=== PATIENT | male | born 1965 | race Two or more races ===

== ENCOUNTER → 2019-01-22 | Outpatient (CLI) | payer OTHER ==
--- NOTE | 2019-01-22 17:46 | CONS ---
Assessment/Plan Assessment/Plan Hospital Course (Demo Recall) This is a 53-year-old male with a subchondral fracture of the right lateral femoral condyle. Patient does not recall an injury. He has been limiting weightbearing with a cane however he has not been completely nonweightbearing. At this time I would like to make him strictly nonweightbearing for approximately 6 weeks at that time he will be reevaluated to determine if continued conservative management should be done or he should undergo sub- chondroplasty. Radiographs do not show any collapse of the subchondral bone at this time. This will need to be closely monitored. Plan: Strictly nonweightbearing with crutches or walker if necessary Full active range of motion of the knee Follow-up 3 weeks for clinical examination as well as repeat x-rays Consultation Date/Type/Reason Admit Date/Time Date of Consultation: Jan 22, 2019 Reason for Consultation Right knee pain Date/Time of Note DATE: 01/22/19 TIME: 17:36 Hx of Present Illness Is a 53-year-old male with a chief complaint of right knee pain. The pain began approximately 1.5 months ago. The patients pain is in the lateral aspect of the right knee. Pain is not radiating to the lower leg. The pain is rated as a 7/10. Denies any injury. States he woke up with it. He has had significant difficulty ambulating secondary to pain. He has been using a cane. Patient denies complaints of numbness or tingling. The pain is exacerbated by weight bearing. Pain is not relieved by NSAID's. Patient has been taking meloxicam on a p.r.n. basis as well as using ice. Duration: 1.5 months Injury: No Walking tolerance: Very limited Limp: Yes Support: Cane Swelling: Yes Crepitation: Yes Instability: No Stairs: Not use Physical Therapy: No Injections: No NSAIDs: Meloxicam Prior surgery: No Back pain: No Hip pain: Yes Risk of AVN : Yes Patient denies fever, chills, shortness of breath, chest pain, nausea/vomiting, constipation, diarrhea, numbness, and tingling. Past Medical History Renal cell carcinoma -in remission Past Surgical History Surgical excision renal cell carcinoma, nephrectomy/adrenalectomy Family History Significant Family History: no pertinent family hx Social History Alcohol Use: heavy (2 shots per day) Smoking Status: Former smoker Drug Use: none Exam/Review of Systems Exam Vitals Weight: 225 pounds Height: 6 foot Temperature: 98.0 Heart Rate: 77 Blood Pressure: 129/76 Respiratory Rate: 12 Exam General: Alert, oriented x3. No Acute Distress. Heart: Regular rate and rhythm. Lungs: No respiratory distress. No accessory muscle use. Musculoskeletal: Right Knee This is a well developed male who is alert, oriented times three and in no apparent distress. Skin is intact over the right knee as well as the lower extremity with no abrasions, lacerations, or ulcerations. Observation of the patient's gait reveals an antalgic gait with No thrust. Frontal plane alignment is slight varus. There is pain on palpation of the lateral femoral condyle and minimal tenderness to palpation to the joint line. The patient demonstrates grinding anteriorly with ROM. Range of motion: 5 extension to approximately 130 degrees of flexion. Collateral ligament testing reveals no instability with varus or valgus stress at 0 and 30 degrees of flexion. Negative Byron's and negative posterior drawer. Neurovascularly intact with 5/5 EHL/tibialis anterior/gastroc. Sensation intact to light touch in a sural, saphenous, deep peroneal, superficial peroneal, medial and lateral plantar nerve distribution. Palpable, symmetric dorsalis pedis and posterior tibial pulses in both lower extremities. Hip examination normal. Imaging Imaging MRI of the right knee from outside facility personally reviewed. There is a subchondral fracture along the posterior lateral femoral condyle with marked marrow edema. There is no cortical disruption or bony destructive changes. There is a flap to the posterior horn lateral meniscus. There is chondromalacia in the trochlea and the posterior lateral tibia. There is a joint effusion with synovitis X-rays were obtained in clinic today and personally reviewed these included a weightbearing AP, PA, lateral, merchant view. Demonstrate a subchondral fracture lateral femoral condyle. There is no obvious collapse but there are some subchondral changes. SOFIE BASHIR MD Jan 22, 2019 17:46
--- NOTE | 2019-01-23 18:31 | RADRPT ---
PROCEDURE: Right knee radiographs. CLINICAL INDICATION: Trauma. Right knee pain. TECHNIQUE: Four views. Frontal, lateral, oblique, and patellar view. COMPARISON: No prior studies are available for comparison. FINDINGS: There is no fracture or dislocation. The soft tissues are normal. Articular surfaces are intact. There is no lytic or blastic lesion. There is no radiopaque foreign body. IMPRESSION: 1. Normal images of the right knee. RPTAT: QQ .Jeremy Coleman MD, MD Date Time Electronically viewed and signed by .Jeremy Coleman MD, on 01/23/2019 18:31 .R/
== END | disposition home or self-care (01) ==
LOC: HKI 15:52
PROVIDERS: ATTEND Orthopaedic Surgery Adult Reconstructive Orthopaedic Surgery
DX: S72.421D Displaced fracture of lateral condyle of right femur, subsequent encounter for closed fracture with routine healing (principal); X58.XXXD Exposure to other specified factors, subsequent encounter; Z85.53 Personal history of malignant neoplasm of renal pelvis; Z87.891 Personal history of nicotine dependence
CPT/HCPCS: 73564; Z7500; G0463

== ENCOUNTER → 2019-02-14 | Outpatient (CLI) | payer OTHER ==
--- NOTE | 2019-02-14 14:35 | RADRPT ---
PROCEDURE: XR Knees. CLINICAL INDICATION: Bilateral knee pain. TECHNIQUE: Total of eight views. Weightbearing frontal, oblique, and lateral views of the both kne es. Patellar views of both knees. COMPARISON: Right knee radiographs dated 01/22/2019. FINDINGS: There is no fracture or dislocation. The soft tissues are normal. Articular surfaces are intact. There are small osteophytes arising from all 3 joint compartment negra ns bilaterally. There is no lytic or blastic lesion. There is no radiopaque foreign body. IMPRESSION: 1. Mild degenerative changes. 2. Otherwise unremarkable images of both knees. RPTAT: QQ .Jeremy Coleman MD, MD Date Time Electronically viewed and signed by .Jeremy Coleman MD, MD on 02/14/2019 12:36 .R/
--- NOTE | 2019-02-14 15:56 | CONS ---
Consult Date/Type/Reason Admit Date/Time Initial Consult Date Date/Time of Note DATE: 02/14/19 TIME: 15:51 Subjective This is a 53-year-old male following up for subchondral fracture of the right lateral femoral condyle. He was made strict nonweightbearing at last appointment 3 weeks ago. However he had significant difficulty using crutches and a walker and continue to use his cane. He stated he walked as little as possible and put as little weight as possible on the right knee since last appointment. Patient states his pain is significantly better, more than 50% better. Objective Vitals Weight: 220 pound Height: 6 foot Temperature: 90.1 Heart Rate: 126/85 Blood Pressure: 79 Respiratory Rate: 12 Exam Exam/Review of Systems Exam Vitals Weight: 225 pounds Height: 6 foot Temperature: 98.0 Heart Rate: 77 Blood Pressure: 129/76 Respiratory Rate: 12 Exam General: Alert, oriented x3. No Acute Distress. Heart: Regular rate and rhythm. Lungs: No respiratory distress. No accessory muscle use. Musculoskeletal: Right Knee This is a well developed male who is alert, oriented times three and in no apparent distress. Skin is intact over the right knee as well as the lower extremity with no abrasions, lacerations, or ulcerations. Observation of the patient's gait reveals an antalgic gait with No thrust. Frontal plane alignment is slight varus. There is mild pain on palpation of the lateral femoral condyle and minimal tenderness to palpation to the joint line. The patient demonstrates grinding anteriorly with ROM. Range of motion: 5 extension to approximately 130 degrees of flexion. Collateral ligament testing reveals no instability with varus or valgus stress at 0 and 30 degrees of flexion. Negative Byron's and negative posterior drawer. Neurovascularly intact with 5/5 EHL/tibialis anterior/gastroc. Sensation intact to light touch in a sural, saphenous, deep peroneal, superficial peroneal, medial and lateral plantar nerve distribution. Palpable, symmetric dorsalis pedis and posterior tibial pulses in both lower extremities. Hip examination normal. Results/Medications Imaging X-rays were obtained in clinic today and personally reviewed these included a weightbearing AP, PA, lateral, merchant view. Demonstrate a subchondral fracture lateral femoral condyle. There is no obvious collapse but there are some subchondral changes. Assessment/Plan Hospital Course (Demo Recall) 53-year-old male with subchondral fracture of his right lateral femoral condyle. He has had significant improvement over the last 3 weeks even though he has not remain strictly nonweightbearing. He has decreased pain when walking as well as decrease tenderness to palpation on examination. Radiographs do not show any advancement of fracture or collapse. I like the patient to remain nonweightbearing for another 3 weeks. At that time would like him to follow-up with new x-rays of the knee. If his pain and exam continues to improve at next visit and radiographs do not show any collapse I will begin to allow him to weight-bear as tolerated. SOFIE BASHIR MD Feb 14, 2019 15:56
== END | disposition home or self-care (01) ==
LOC: HKI 11:54
PROVIDERS: ATTEND Orthopaedic Surgery Adult Reconstructive Orthopaedic Surgery
DX: S72.421D Displaced fracture of lateral condyle of right femur, subsequent encounter for closed fracture with routine healing (principal); X58.XXXD Exposure to other specified factors, subsequent encounter
CPT/HCPCS: 73564; Z7500; G0463

== ENCOUNTER → 2019-03-08 | Outpatient (CLI) | payer OTHER ==
--- NOTE | 2019-03-08 14:36 | CONS ---
Consult Date/Type/Reason Admit Date/Time Initial Consult Date Date/Time of Note DATE: 03/08/19 TIME: 14:33 Subjective 53-year-old male follows up today for 6-week appointment after initiating conservative treatment for right lateral femoral condyle insufficiency fracture. Patient's knee pain originally began almost 3 months ago. Conservative treatment with protected weightbearing began approximately 6-7 weeks ago. The patient today states he is much better. He stopped using his cane in the last couple days. He states his pain is minimal. He almost has no limp. Very happy with results. Looking for starting physical therapy. Objective Vitals Weight: 220 pounds Height: 6 foot Temperature: 90.3 Heart Rate: 94 Blood Pressure: 130/86 Respiratory Rate: 12 Exam General: Alert, oriented x3. No Acute Distress. Heart: Regular rate and rhythm. Lungs: No respiratory distress. No accessory muscle use. Musculoskeletal: Right Knee This is a well developed male who is alert, oriented times three and in no apparent distress. Skin is intact over the right knee as well as the lower extremity with no abrasions, lacerations, or ulcerations. Observation of the patient's gait reveals an antalgic gait with No thrust. Frontal plane alignment is slight varus. There is significant quadricep atrophy. There is minimal pain on palpation of the lateral femoral condyle and minimal tenderness to palpation to the joint line. The patient demonstrates grinding anteriorly with ROM. Range of motion: 5 extension to approximately 130 degrees of flexion. Collateral ligament testing reveals no instability with varus or valgus stress at 0 and 30 degrees of flexion. Negative Byron's and negative posterior drawer. Neurovascularly intact with 5/5 EHL/tibialis a nterior/gastroc. Sensation intact to light touch in a sural, saphenous, deep peroneal, superficial peroneal, medial and lateral plantar nerve distribution. Palpable, symmetric dorsalis pedis and posterior tibial pulses in both lower extremities. Hip examination normal. Gait: Brisk pace. Minimal limp Results/Medications Imaging 3 views of the right knee were obtained in clinic today. These were personally reviewed. AP, lateral, oblique view of the right knee do not demonstrate any collapse of the lateral femoral condyle. No sign of fracture or other acute abnormality. Assessment/Plan Hospital Course (Demo Recall) 53-year-old male treated nonoperatively for right lateral femoral condyle insufficiency fracture. Radiographically and clinically the fracture is healed. 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 He will benefit from physical therapy. Plan: Slowly increase activities as tolerated Begin physical therapy Follow-up SOFIE LYNN MD Mar 08, 2019 14:36
--- NOTE | 2019-03-09 06:16 | RADRPT ---
PROCEDURE: XR Knee. CLINICAL INDICATION: PAIN TECHNIQUE: AP, lateral and oblique view of the right knee were obtained. The images reviewed on a PACS workstation. COMPARISON: KNEE 02/14/2019 FINDINGS: No fracture dislocation. Mild joint space narrowing with tiny marginal osteophyte formation at the me dial and patellofemoral compartments. No significant joint effusion. No erosive changes. 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 RPTAT:AAJJ Physician Dell Date Time Electronically viewed and signed by Abbie Villareal Physician on 03/09/2019 06:16 RF/
== END | disposition home or self-care (01) ==
LOC: HKI 13:04
PROVIDERS: ATTEND Orthopaedic Surgery Adult Reconstructive Orthopaedic Surgery
DX: S72.421A Displaced fracture of lateral condyle of right femur, initial encounter for closed fracture (principal); X58.XXXA Exposure to other specified factors, initial encounter; Y92.89 Other specified places as the place of occurrence of the external cause
CPT/HCPCS: 73562; Z7500; G0463